=== PATIENT | male | born 1985 | race African-American/Black ===

== ENCOUNTER 2022-02-18 14:14 | Emergency (ER) | payer MEDICAID ==
[~2022-02-18] VITALS: Ht 185.4 cm; Wt 72.0 kg
[2022-02-18 14:22] VITALS: BP 111/73
[2022-02-18] MEDS ORDERED: GABA-529 MT (14:30)
== END 2022-02-18 15:00 | disposition home or self-care (01) ==
LOC: ER 14:14
DX: B02.9 Zoster without complications (principal)
CPT/HCPCS: 99282; 99283

== ENCOUNTER 2025-10-02 18:33 | Emergency (ER) | payer SELFPAY ==
[~2025-10-02] VITALS: Ht 185.4 cm; Wt 75.0 kg
[~2025-10-02 18:33] MED LIST: GABA-529 MT
[2025-10-02 18:52] VITALS: BP 100/61; TEMP 37.9; O2SAT 99
[2025-10-02 19:03] VITALS: PULSE 110; RESP 18; O2SAT 98
== END 2025-10-02 21:24 | disposition left against medical advice (07) ==
LOC: ER 18:33
DX: R10.9 Unspecified abdominal pain (principal); M54.50 Low back pain, unspecified
CPT/HCPCS: 99281

== ENCOUNTER 2025-10-25 18:51 | Inpatient (IN) | payer MEDICAID, OTHER ==
[~2025-10-25] VITALS: Ht 182.9 cm; Wt 68.5 kg
[2025-10-25 18:57] VITALS: O2SAT 100
[2025-10-25] MEDS: MORPHINE SULFATE 4 MG/ML INJ (FOR IV/IM USE) IV ONE (20:06)
[2025-10-25] MEDS: ONDANSETRON HCL 4MG/2ML INJ IV ONE (20:06)
[2025-10-25] MEDS: SODIUM CHLORIDE 0.9% (SEPSIS BOLUS) IV ONE (20:09)
[2025-10-25] MEDS: PIPERACILLIN/TAZO 3.375G/50ML 50 ML IV ONE (20:12)
[2025-10-25 20:25] LABS: HEMATOCRIT. 48.6 % (42.0-52.0); HEMOGLOBIN. 16.7 g/dL (14.0-18.0); MEAN PLATELET VOLUME 8.8 fl (7.4-10.4); PLATELET 415 x1000/uL (130-400); RED BLOOD CELL COUNT 5.13 mill/uL (4.7-6.1); RED CELL DISTRIBUTION WIDTH 14.1 % (11.6-14.6)
[2025-10-25 20:34] LABS: CREATININE 1.3 mg/dL (0.6-1.3); UREA NITROGEN BLOOD 44 mg/dL (9-23)
[2025-10-25 20:36] LABS: ASPARTATE AMINOTRANSFERASE 14 IU/L (<34); BILIRUBIN DIRECT 0.3 mg/dL (<=3.0); BILIRUBIN TOTAL 0.7 mg/dL (0.1-1.0); PROTEIN TOTAL 8.2 g/dL (6.0-8.3)
[2025-10-25 20:40] LABS: INR 1.1
[2025-10-25] MEDS: VANCOMYCIN 1G PREMIX 200 ML IV ONE (21:22)
[2025-10-25 22:19] LABS: CLARITY URINE CLEAR (CLEAR); COLOR URINE YELLOW (YELLOW); GLUCOSE URINE NEGATIVE (NEGATIVE); KETONES URINE 1+ (NEGATIVE); LEUKOCYTE ESTERASE URINE NEGATIVE (NEGATIVE); NITRITE URINE NEGATIVE (NEGATIVE); OCCULT BLOOD URINE NEGATIVE (NEGATIVE); PH URINE 6.5 (4.5-8.0); PROTEIN URINE TRACE (NEGATIVE); SPECIFIC GRAVITY URINE 1.029 (1.005-1.030); UROBILINOGEN URINE 0.2 E.U./dL (0.2-1.0)
[2025-10-25 23:00] LABS: RBC URINE NONE SEEN /hpf (0-2); WBC URINE NONE SEEN /hpf (0-2)
[2025-10-25 23:01] LABS: BACTERIA URINE NONE SEEN; HYALINE CASTS URINE 0-5 /lpf; SQUAMOUS EPITHELIAL CELL URINE RARE /lpf (RARE/1+)
[2025-10-25 23:17] LABS: BAND% 8.0 % (1.0-6.0); LYMPHOCYTES % MANUAL 36.0 % (20.0-50.0); MONOCYTES % MANUAL 16.0 % (2.0-8.0); NEUTROPHILS % MANUAL 40.0 % (45.0-75.0); PLATELET ESTIMATE INCREASED
[2025-10-25] MEDS: IOHEXOL-300 100 ML BOTTLE ONE (23:50)
[2025-10-26] MEDS: ONDANSETRON HCL 4MG/2ML INJ IV PRN (02:38)
[2025-10-26] MEDS: MORPHINE SULFATE 2 MG/ML INJ (NOT FOR IM USE) IV PRN (02:38)
[2025-10-26 11:04] VITALS: BP 128/81; PULSE 86; RESP 16; TEMP 36.4736
[2025-10-26 12:00] VITALS: BP 116/74; PULSE 84; RESP 18; TEMP 36.3; O2SAT 97
[2025-10-26] MEDS: PANTOPRAZOLE SODIUM 40 MG/VIAL IV SCH (14:53)
[2025-10-26] MEDS: SODIUM CHLORIDE 0.9% 1,000 ML IV SCH (14:54)
[2025-10-26 16:00] VITALS: BP 124/82; PULSE 85; RESP 18; TEMP 36.8; O2SAT 97
[2025-10-26 20:00] VITALS: BP 123/82; PULSE 90; RESP 18; TEMP 36.8; O2SAT 99
[2025-10-27] VITALS: BP 126/81; PULSE 80; RESP 18; TEMP 36.7; O2SAT 99
[2025-10-27 08:00] VITALS: BP 114/77; PULSE 80; RESP 18; TEMP 36.6; O2SAT 98
[2025-10-27 08:31] LABS: HEMATOCRIT. 39.3 % (42.0-52.0); HEMOGLOBIN. 13.4 g/dL (14.0-18.0); MEAN PLATELET VOLUME 8.6 fl (7.4-10.4); PLATELET 306 x1000/uL (130-400); RED BLOOD CELL COUNT 4.11 mill/uL (4.7-6.1); RED CELL DISTRIBUTION WIDTH 13.7 % (11.6-14.6)
[2025-10-27 08:39] LABS: CREATININE 0.7 mg/dL (0.6-1.3)
[2025-10-27 08:40] LABS: UREA NITROGEN BLOOD 16 mg/dL (9-23)
[2025-10-27 12:00] VITALS: BP 126/90; PULSE 81; RESP 18; TEMP 36.6; O2SAT 98
[2025-10-27 16:00] VITALS: BP 114/81; PULSE 87; RESP 18; TEMP 36.5; O2SAT 99
[2025-10-27 16:51] LABS: LYMPHOCYTES % MANUAL 19.0 % (20.0-50.0); MONOCYTES % MANUAL 20.0 % (2.0-8.0); NEUTROPHILS % MANUAL 61.0 % (45.0-75.0); PLATELET ESTIMATE NORMAL
[2025-10-27 20:00] VITALS: BP 132/94; PULSE 88; RESP 20; TEMP 36.7; O2SAT 98
[2025-10-27] MEDS ORDERED: NALOXONE HCL 0.4MG/ML VIAL IV PRN (22:15)
[2025-10-28] VITALS: BP 117/85; PULSE 77; RESP 18; TEMP 36.7; O2SAT 98
[2025-10-28] MEDS: METOCLOPRAMIDE HCL 10MG/2ML VIAL IV PRN (02:04)
[2025-10-28 06:40] VITALS: BP 121/81; PULSE 79; RESP 18; TEMP 36.7; O2SAT 97
[2025-10-28 08:00] VITALS: BP 118/76; PULSE 83; RESP 20; TEMP 36.3; O2SAT 100
[2025-10-28 20:00] VITALS: BP 130/81; PULSE 81; RESP 18; TEMP 36.6; O2SAT 97
[2025-10-29] VITALS: BP 126/78; PULSE 78; RESP 18; TEMP 36.7; O2SAT 98
[2025-10-29 04:00] VITALS: BP 121/63; PULSE 71; RESP 18; TEMP 36.6; O2SAT 97
[2025-10-29 08:00] VITALS: BP 116/77; PULSE 75; RESP 18; TEMP 36.8; O2SAT 98
[2025-10-29 12:00] VITALS: BP 122/77; PULSE 96; RESP 17; TEMP 36.5; O2SAT 100
[2025-10-29 16:00] VITALS: BP 122/75; PULSE 70; RESP 17; TEMP 35.6; O2SAT 99
[2025-10-29 20:00] VITALS: BP 119/68; PULSE 68; RESP 18; TEMP 35.6; O2SAT 98
[2025-10-29] MEDS: ZOLPIDEM TARTRATE 5MG TABLET PO SCH (22:32)
[2025-10-30] VITALS: BP 126/62; PULSE 72; RESP 18; TEMP 36.1; O2SAT 96
[2025-10-30 04:00] VITALS: BP 114/58; PULSE 76; RESP 19; TEMP 36.4; O2SAT 98
[2025-10-30 07:50] LABS: HEMATOCRIT. 37.7 % (42.0-52.0); HEMOGLOBIN. 12.8 g/dL (14.0-18.0); MEAN PLATELET VOLUME 8.6 fl (7.4-10.4); PLATELET 283 x1000/uL (130-400); RED BLOOD CELL COUNT 3.99 mill/uL (4.7-6.1); RED CELL DISTRIBUTION WIDTH 13.6 % (11.6-14.6)
[2025-10-30 08:00] VITALS: BP 119/82; PULSE 80; RESP 16; TEMP 36.4; O2SAT 99
[2025-10-30 08:20] LABS: CREATININE 0.6 mg/dL (0.6-1.3); UREA NITROGEN BLOOD < 5 mg/dL (9-23)
[2025-10-30 12:00] VITALS: BP 121/86; PULSE 82; RESP 16; TEMP 36.4; O2SAT 100
[2025-10-30 16:00] VITALS: BP 120/73; PULSE 74; RESP 16; TEMP 36.3; O2SAT 99
[2025-10-30] MEDS: ONDANSETRON 4MG ODT PO PRN (17:20)
[2025-10-30 20:00] VITALS: BP 124/82; PULSE 94; RESP 18; TEMP 36.5; O2SAT 97
[2025-10-30 21:05] LABS: BAND% 1.0 % (1.0-6.0); EOSINOPHILS % MANUAL 2.0 % (0.0-5.0); LYMPHOCYTES % MANUAL 33.0 % (20.0-50.0); MONOCYTES % MANUAL 14.0 % (2.0-8.0); NEUTROPHILS % MANUAL 50.0 % (45.0-75.0); PLATELET ESTIMATE NORMAL
[2025-10-30] MEDS: ZOLPIDEM TARTRATE 5MG TABLET PO PRN (22:17)
[2025-10-31] VITALS: BP 126/94; PULSE 104; RESP 18; TEMP 36.4; O2SAT 99
[2025-10-31 04:00] VITALS: BP 109/64; PULSE 80; RESP 18; TEMP 35.9; O2SAT 99
[2025-10-31 08:00] VITALS: BP 110/86; PULSE 86; RESP 18; TEMP 35.7; O2SAT 100
[2025-10-31 12:00] VITALS: BP 123/87; PULSE 102; RESP 18; TEMP 36.4; O2SAT 100
[2025-10-31] MEDS ORDERED: ONDA4TAB50 MT (14:50)
[2025-10-31] MEDS ORDERED: PROT40 MT (14:50)
[2025-10-31 15:52] VITALS: BP 126/77; PULSE 100; RESP 18; TEMP 96.3
== END 2025-10-31 16:20 | disposition home or self-care (01) | DRG 252 ==
LOC: ER 18:51 → 4WST 21:49 → EDBEDREQ 21:58 → EDBEDREQTM 21:58 → ENRESERV 10-26 07:20
PROVIDERS: ADMIT Internal Medicine; ATTEND Internal Medicine
PROC: 0D9670Z Drainage of Stomach with Drainage Device, Via Natural or Artificial Opening (ICD-10-PCS; principal; 2025-10-25)
DX: K91.30 Postprocedural intestinal obstruction, unspecified as to partial versus complete (principal); E87.1 Hypo-osmolality and hyponatremia; Z79.899 Other long term (current) drug therapy; Z93.3 Colostomy status
CPT/HCPCS: 36415; 71045; 74018; 74177; 80048; 80076; 81003; 83605; 84145; 85025; 86850; 86900; 96365; 96366; 96375; 99291; J2270; J2405; J2470; J2543; J2765; J3373; J7030; Q0162; Q9967